=== PATIENT | male | born 1975 | race Hispanic/Latino ===

== ENCOUNTER 2022-01-16 18:18 | Emergency (ER) | payer SELFPAY ==
[2022-01-16] MEDS ORDERED: Lidocaine 4% Topical Sol 50 ML BOT ONE (18:35)
[2022-01-16] MEDS ORDERED: HYDROcodone/Acetaminophen 5/325 mg Tablet ONE (18:35)
[2022-01-16] MEDS ORDERED: Lidocaine 1% (PF) 30 ML VIAL SC SCH (19:00)
[2022-01-16] MEDS ORDERED: CEFAZOLIN 2 GM VIAL ONE (20:22)
[2022-01-16] MEDS ORDERED: Bacitracin 1 PK ONE (20:27)
== END 2022-01-16 20:29 | disposition home or self-care (01) ==
LOC: ERS 18:18
DX: S51.811A Laceration without foreign body of right forearm, initial encounter (principal); W26.8XXA Contact with other sharp object(s), not elsewhere classified, initial encounter
CPT/HCPCS: 12032; J0690; J2001